=== PATIENT | female | born 1955 | race Caucasian/White ===

== ENCOUNTER → 2021-06-06 14:33 | Outpatient (CLI) | payer MEDICARE, BC, SELFPAY ==
--- NOTE | 2021-06-06 | DI.RAD.S_ITS ---
PROCEDURE: XR SACRUM COCCYX MIN 2V INDICATIONS: low back pain w/ sciatica TECHNIQUE: 3 views of the sacrum and coccyx acquired. COMPARISON: None. FINDINGS: Bones: No fractures or dislocations. No suspicious bony lesions. Soft tissues: Visualized bowel gas pattern is normal. No suspicious soft tissue densities. IMPRESSION: No fracture. No acute osseous lesion. If symptoms and/or clinical suspicion for pathology persists, further assessment with repeat radiographs (7-10 days) or advanced imaging (e.g. CT, MRI or bone scan) should be considered. Dictated by: Therese Mane MD, PhD on 06/06/2021 at 17:28 Approved by: Therese Mane MD, PhD on 06/06/2021 at 17:29
== END ==
PROVIDERS: Referring Provider Student in an Organized Health Care Education/Training Program; Visit Provider Student in an Organized Health Care Education/Training Program
DX: M54.50 Low back pain, unspecified (principal); M53.3 Sacrococcygeal disorders, not elsewhere classified
CPT/HCPCS: 72220

== ENCOUNTER 2021-06-08 12:37 | Emergency (ER) | payer MEDICARE, BC, SELFPAY ==
[2021-06-08 12:50] VITALS: BP 136/62; PULSE 84; RESP 15; TEMP 37; O2SAT 97; BMI 23.6
--- NOTE | 2021-06-08 12:52 | ED.BACK ---
HPI - Back Pain/Injury <ALFONSO Novak - Last Filed: 06/08/21 17:44> General Chief Complaint: Back Pain/Injury Stated Complaint: Back injury 05/30- pain worsening Time Seen by Provider: 06/08/21 12:47 History of Present Illness HPI Narrative: This is a 65-year-old female without significant medical history presents to the emergency department complaining of ongoing right-sided back pain from her fall on 05/30/2021. Patient states that she was approximately 5 ft up on a ladder when she fell off, has had right hip pain or right lower lateral back pain ever since. She states that she landed on her coccyx, does not have coccygeal pain but has tenderness over her lumbar area and tenderness over her right posterior hip. She denies any open wound, she denies hitting her head, she had x-rays initially at the [facility] on 06/02/21 without evidence of fracture, she had sacrum and coccyx x-ray on 06/06/21 here in the emergency department without evidence of acute osseous abnormality. Patient states that she has not had lumbar spine x-rays. She denies any weakness in her lower extremities, any sensation changes, any neuropathy, incontinence, urinary retention or any other changes. Related Data Previous Rx's Medication Instructions Recorded diclofenac sodium 1 % topical gel 4 g TOPICAL QID PRN #100 g 06/08/21 (Voltaren Arthritis Pain) ketorolac 10 mg tablet 10 mg PO Q8H PRN #14 tab 06/08/21 lidocaine 4 % topical patch (Lido 1 patch TOPICAL BID PRN #15 ea 06/08/21 ) methocarbamol 500 mg tablet 500 mg PO TID PRN #20 tab 06/08/21 omeprazole magnesium 20 mg 20 mg PO DAILY #14 tab 06/08/21 tablet,delayed release oxycodone-acetaminophen 5 mg-325 1 tab PO Q8H PRN #14 tab 06/08/21 mg tablet (Percocet) Allergies Allergy/AdvReac Type Severity Reaction Status Date / Time codeine Allergy Verified 06/08/21 12:56 Review of Systems <ALFONSO Novak - Last Filed: 06/08/21 17:44> Review of Systems Narrative: General: denies fever, chills, malaise, sweats, fatigue Head/Neck: denies headache, neck pain, dizziness Eyes: denies visual changes, eye pain Cardio: denies chest pain, palpitations, edema Respiratory: denies dyspnea, cough, orthopnea GI: denies abdominal pain, nausea, vomiting, or diarrhea : denies dysuria, hematuria, urinary retention, frequency or incontinence MSK: endorses back pain with right posterior hip pain muscle weakness Skin: denies rash, itching, skin lesions or other Neuro: denies numbness, tingling Patient History <ALFONSO Novak - Last Filed: 06/08/21 17:44> Social History Smoking Status: Current every day smoker Exam <ALFONSO Novak - Last Filed: 06/08/21 17:44> Narrative Exam Narrative: Independently reviewed vitals signs and nursing notes. General: Awake, alert, nontoxic, no cardiorespiratory distress Head/Neck: Atraumatic, neck full range of motion Eyes: EOMI, conjunctiva normal Nose: nares patent, no rhinorrhea Mouth/Throat: moist mucus membranes,no oral lesions Cardio: Regular rate and rhythm, no peripheral edema Respiratory: respirations unlabored without wheezing, stridor, or rales. No retractions. GI: Abdomen soft, nontender to palpation MSK: Moves all extremities, neurovascularly intact, tenderness over L1 L2 vertebrae, likely radiculopathy to right hip, tenderness of the musculature surrounding the right lumbar spine, no weakness her lower extremities, symptoms are exacerbated with left leg raise, no alteration in gait Skin: Normal capillary refill, no rash Neuro: Normal speech and cognition, normal gait, cranial nerves 2-12 are grossly intact, no neuro deficit on exam Initial Vital Signs Initial Vital Signs: Vital Signs Temperature 98.6 F 06/08/21 12:50 Pulse Rate 84 06/08/21 12:50 Respiratory Rate 15 06/08/21 12:50 Blood Pressure 136/62 06/08/21 12:50 Pulse Oximetry 97 06/08/21 12:50 <Eve Case DO - Last Filed: 06/09/21 06:48> Initial Vital Signs Initial Vital Signs: Vital Signs Temperature 98.6 F 06/08/21 12:50 Pulse Rate 84 06/08/21 12:50 Respiratory Rate 15 06/08/21 12:50 Blood Pressure 136/62 04/06/22 12:50 Pulse Oximetry 97 06/08/21 12:50 Course <ALFONSO Novak - Last Filed: 06/08/21 17:44> Orders Ordered: Discontinued Medications Ketorolac Tromethamine (Ketorolac 30 Mg/Ml Vial) 15 mg IM NOW ONE Stop: 06/08/21 13:05 Last Admin: 06/08/21 13:41 Dose: 15 mg Documented by: MICHELLE Lidocaine (Lidocaine Patch 1 Each Adh..Patch) 1 each TOP NOW ONE Stop: 06/08/21 13:05 Last Admin: 06/08/21 13:41 Dose: 1 each Documented by: MICHELLE Methocarbamol (Methocarbamol 500 Mg Tablet) 500 mg PO NOW ONE Stop: 06/08/21 13:05 Last Admin: 06/08/21 13:42 Dose: 500 mg Documented by: MICHELLE Oxycodone/Acetaminophen (Oxycodone/Acetaminophen 5/325 Tablet) 1 tab PO NOW ONE Stop: 06/08/21 13:05 Last Admin: 06/08/21 13:41 Dose: 1 tab Documented by: MICHELLE Vital Signs Vital signs: Vital Signs - 8 hr 06/08/21 12:50 06/08/21 14:47 Temperature 98.6 F Pulse Rate 84 77 Respiratory Rate 15 16 Blood Pressure 136/62 134/74 Pulse Oximetry 97 97 <Eve Case DO - Last Filed: 06/09/21 06:48> Orders Ordered: Discontinued Medications Ketorolac Tromethamine (Ketorolac 30 Mg/Ml Vial) 15 mg IM NOW ONE Stop: 06/08/21 13:05 Last Admin: 06/08/21 13:41 Dose: 15 mg Documented by: MICHELLE Lidocaine (Lidocaine Patch 1 Each Adh..Patch) 1 each TOP NOW ONE Stop: 06/08/21 13:05 Last Admin: 06/08/21 13:41 Dose: 1 each Documented by: MICHELLE Methocarbamol (Methocarbamol 500 Mg Tablet) 500 mg PO NOW ONE Stop: 06/08/21 13:05 Last Admin: 06/08/21 13:42 Dose: 500 mg Documented by: MICHELLE Oxycodone/Acetaminophen (Oxycodone/Acetaminophen 5/325 Tablet) 1 tab PO NOW ONE Stop: 06/08/21 13:05 Last Admin: 06/08/21 13:41 Dose: 1 tab Documented by: MICHELLE Vital Signs Vital signs: Vital Signs - 8 hr 06/08/21 12:50 06/08/21 14:47 Temperature 98.6 F Pulse Rate 84 77 Respiratory Rate 15 16 Blood Pressure 136/62 134/74 Pulse Oximetry 97 97 [facility] - Back Pain/Injury <Vicky Meraz, [facility] - Last Filed: 06/08/21 17:44> Imaging Data lumbar xray: Radiologist's Impression: PROCEDURE:? XR LUMBAR SPINE 2-3V ? INDICATIONS:? fall from ladder 05/30. lumbar tenderness, radiated rt hip pn ? TECHNIQUE:? 3 views of the lumbar spine were acquired.? ? COMPARISON:? None. ? FINDINGS:? ? Bones:? 5 [id number] vertebrae are present.? There is normal bony alignment.? Loss of height noted in the L1 vertebral body compatible with compression fracture of indeterminate age.? L1 compression fracture results in approximately 20% loss of normal vertebral body height.? No retropulsed fragments are kyphosis associated with the L1 compression fracture.? No suspicious bony lesions.? Severe L5-S1 degenerative disc disease.? Mild L1-L2, L2-L3, L3-L4 and L4-L5 degenerative disc disease.? Moderate L4-L5 and L5-S1 facet arthropathy.? ? Soft tissues:? Overlying bowel gas pattern is normal.? No suspicious soft tissue calcifications.? ? ? IMPRESSION:? L1 compression fracture of indeterminate age. ? ? Dictated by: Therese Mane MD, PhD on 06/08/2021 at 13:39 ? ? Approved by: Therese Mane MD, PhD on 06/08/2021 at 13:40 ? [facility] Narrative Medical decision making narrative: This is an otherwise healthy 65-year-old male presents to the emergency department for ongoing low back pain with right hip pain since her fall on 05/30/2021. She has been seen with x-rays 2 x 1st at the [facility], 2nd here in the emergency department with x-rays of her sacrum and coccyx. On exam, patient had tenderness over her L1-L2 vertebrae. X-ray of her lumbar spine shows a L1 compression fracture with if vertebral body height reduction of 20%. This is likely causing referred pain to her right hip. Patient was given a lidocaine patch in the emergency department, Toradol injection, methocarbamol, and a Percocet. She states that this helped her pain and she is more comfortable. Patient was given a referral to Orthopedics to follow up accordingly, she came in with a back brace, she was told that it can be used in the acute period of pain but not to be worn long-term for core musculature atrophy. Patient states understanding, she will follow-up with [facility], a referral to Dr. Mart was placed. Pt's partner has seen him before for his spinal surgery and she would like to see him as well. Patient did not have any weakness, does not have any sciatica at this time or radiculopathy beyond her right hip. She has not had any incontinence. Multiple etiologies of back pain considered including; Epidural abscess, cauda equina, mass occupying lesion, lumbar fracture, intra-abdominal pathology chronic neuropathic pain and other considered. Patient is appropriate and amenable to discharge home. Vital signs are stable on repeat examination is unremarkable. Patient has been informed of results. Patient has been given strict return to ER precautions for any new or worsening symptoms. Patient understands to follow up closely with outpatient providers as instructed. Patient understands plan and agrees to discharge home. All questions and concerns answered at this time. Discharge Plan Departure Patient Disposition: Home Clinical Impression: Compression fracture of lumbar vertebra Qualifiers: Encounter type: subsequent encounter Lumbar vertebra fracture level: L1 Fracture healing: with routine healing Qualified Code(s): S32.010D - Wedge compression fracture of first lumbar vertebra, subsequent encounter for fracture with routine healing Instructions: Vertebral Compression Fracture, DI for Sciatica, DI for Back Spasm Activity Restrictions/Additional Instructions: *You have been diagnosed with a L1 compression fracture resulting in approximately 20% loss of normal vertebral body height. Your x-ray also shows severe L5-S1 degenerative disc disease, mild L1-L2, L2-L3, L3-L4, and L4-L5 degenerative disk disease. There is moderate L4-L5 and L5-S1 facet arthropathy. Please follow-up with Dr. Mart, I have placed an internal referral for him. Please call the office and see when you can get an appointment. Please follow-up with Dr. Monsalve for advanced imaging and or physical therapy. Please return to the emergency department if you develop any weakness, incontinence, sensation changes in your extremities, difficulty walking, or other concerns. Thank you for trusting us with your care. Please schedule an appt with Dr. Fela Monsalve For follow-up from your emergency department visit, and request physical therapy referral, [id number] [address] *What to do: *Please continue to take your regular medications as directed. [ x] New medication prescriptions sent to your pharmacy: [[facility] ] [ ] New medication written as a paper prescription [ ] No new medications given *Please follow up with your primary care provider in 2-3 days, call for an appointment. Let them know you were seen in the Emergency Department and that we asked that you be seen for follow-up. We will electronically transmit a record of today's note if your PCP is in our system *If you do not have a primary care provider please contact [phone] to establish care with one of the [facility] primary care providers. *Return to Emergency Department if you should have any new, worsening or concerning symptoms, such as [fever greater than 101F, chills, worsening pain, persistent vomiting or other bothersome symptoms] Prescriptions: New oxycodone-acetaminophen [Percocet] 5-325 mg tablet 1 tab PO Q8H PRN (Reason: pain) Qty: 14 0RF methocarbamol 500 mg tablet 500 mg PO TID PRN (Reason: muscle spasm) Qty: 20 0RF lidocaine [Lido Ney] 4 % adhesive patch,medicated 1 patch topical BID PRN (Reason: pain) Qty: 15 0RF diclofenac sodium [Voltaren Arthritis Pain] 1 % gel 4 g topical QID PRN (Reason: back pain) Qty: 100 0RF Rx Instructions: apply to single knee, ankle, foot; for foot includes sole/toes/top of foot ketorolac 10 mg tablet 10 mg PO Q8H PRN (Reason: pain) Qty: 14 0RF omeprazole magnesium 20 mg tablet,delayed release (DR/EC) 20 mg PO DAILY Qty: 14 0RF Referrals: [facility] [Provider Group] Stefano Mart MD [Physician] - 3-5 days <Eve Case DO - Last Filed: 06/09/21 06:48> Cosign ED Attending Cosignature Attestation: I was immediately available in the department for consultation. Documentation has been reviewed. I agree with assessment and plan.
--- NOTE | 2021-06-08 13:03 | DI.RAD.S_ITS ---
PROCEDURE: XR LUMBAR SPINE 2-3V INDICATIONS: fall from ladder 05/30. lumbar tenderness, radiated rt hip pn TECHNIQUE: 3 views of the lumbar spine were acquired. COMPARISON: None. FINDINGS: Bones: 5 [id number] vertebrae are present. There is normal bony alignment. Loss of height noted in the L1 vertebral body compatible with compression fracture of indeterminate age. L1 compression fracture results in approximately 20% loss of normal vertebral body height. No retropulsed fragments are kyphosis associated with the L1 compression fracture. No suspicious bony lesions. Severe L5-S1 degenerative disc disease. Mild L1-L2, L2-L3, L3-L4 and L4-L5 degenerative disc disease. Moderate L4-L5 and L5-S1 facet arthropathy. Soft tissues: Overlying bowel gas pattern is normal. No suspicious soft tissue calcifications. IMPRESSION: L1 compression fracture of indeterminate age. Dictated by: Therese Mane MD, PhD on 06/08/2021 at 13:39 Approved by: Therese Mane MD, PhD on 06/08/2021 at 13:40
[2021-06-08] MEDS: LIDOCAINE PATCH 1 EACH ADH..PATCH TOP (13:41)
[2021-06-08] MEDS: KETOROLAC 30 MG/ML VIAL 15 MG IM (13:41)
[2021-06-08] MEDS: OXYCODONE/ACETAMINOPHEN 5/325 TABLET 1 TAB PO (13:41)
[2021-06-08] MEDS: methocarbamoL 500 MG TABLET PO (13:42)
--- NOTE | 2021-06-08 13:49 | PC.NURSE ---
Pt states she fell off a 5 ft ladder on 05/30. was seen at her Dr's office and rec'd XR's which were negative. did not hit her head, no LOC, no thinners, c/o increased R sided lumbar back pain. Denies bladder/bowel dysfunction. Repeat XR's completed at todays visit. Medicated per MAY. Resting in bed at this time. NAD
[2021-06-08 14:47] VITALS: BP 134/74; PULSE 77; RESP 16; O2SAT 97
== END 2021-06-08 14:47 | disposition home or self-care (01) ==
PROVIDERS: Emergency Provider Nurse Practitioner Critical Care Medicine
DX: S32.010A Wedge compression fracture of first lumbar vertebra, initial encounter for closed fracture (principal); W11.XXXA Fall on and from ladder, initial encounter
CPT/HCPCS: 72100; 96372; 99283; 99284; J1885

== ENCOUNTER 2024-05-16 08:49 | Emergency (ER) | payer MEDICARE, BC, SELFPAY ==
[2024-05-16] VITALS (10 sets, daily range): BP systolic 124–138; BP diastolic 58–79; PULSE 60–74; RESP 14; TEMP 37.1; O2SAT 93–95; BMI 23.6
--- NOTE | 2024-05-16 08:53 | DI.RAD.S_ITS ---
PROCEDURE: XR ANKLE LT MIN 3V INDICATIONS: ankle deformity TECHNIQUE: 3 views of the ankle were acquired. COMPARISON: None. FINDINGS: Bones: There are probable very subtle fractures of the proximal shafts of the 3rd, 4th, and 5th metatarsals. No ankle fractures are identified. Ankle mortise is normally aligned. No suspicious bony lesions. Soft tissues: No tibiotalar joint effusion. Achilles tendon appears normal. IMPRESSION: Probable nondisplaced very subtle fractures of the proximal shafts of the 3rd, 4th, and 5th metatarsals. No fractures at the ankle. Comment: Recommend foot films. Dictated by: Ralph Hernandez M.D. on 05/16/2024 at 9:14 Approved by: Ralph Hernandez M.D. on 05/16/2024 at 9:17
--- NOTE | 2024-05-16 10:21 | DI.RAD.S_ITS ---
PROCEDURE: XR FOOT LT MIN 3V INDICATIONS: foot fx on ankle x ray TECHNIQUE: 3 views of the foot were acquired. COMPARISON: [facility], CR, XR ANKLE LT MIN 3V, 05/16/2024, 8:55. FINDINGS/IMPRESSION: Minimally displaced, extra-articular fractures of the 4th and 5th metacarpal proximal shafts. Dictated by: Donell Esteban M.D. on 05/16/2024 at 10:43 Approved by: Donell Esteban M.D. on 05/16/2024 at 10:45
[2024-05-16] MEDS: IBUPROFEN 400 MG TABLET 800 MG PO (10:33)
--- NOTE | 2024-05-16 11:06 | ED_ITS ---
HPI - Extremity Injury (Lower) General Chief Complaint: Extremity Injury, Lower Stated Complaint: Fall, L ankle deformity, R knee pain Time Seen by Provider: 05/16/24 10:21 Source: patient Mode of arrival: EMS History of Present Illness HPI Narrative: Patient is a 68-year-old female history of diabetes presenting to day after ground level fall presenting today with left foot and ankle pain. Denies any head injury neck pain no hip pain or loss of consciousness. Took Tylenol prior to arrival Related Data Previous Rx's Medication Instructions Recorded diclofenac sodium 1 % topical gel 4 g topical QID PRN back pain #100 06/08/21 (Voltaren Arthritis Pain) grams ketorolac 10 mg tablet 10 mg PO Q8H PRN pain #14 tabs 06/08/21 lidocaine 4 % topical patch (Lido 1 patch topical BID PRN pain #15 ea 06/08/21 Ney) methocarbamol 500 mg tablet 500 mg PO TID PRN muscle spasm #20 06/08/21 tabs omeprazole magnesium 20 mg 20 mg PO DAILY #14 tabs 06/08/21 tablet,delayed release oxycodone-acetaminophen 5 mg-325 1 tab PO Q8H PRN pain #14 tabs 06/08/21 mg tablet (Percocet) tramadol 50 mg tablet 50 mg PO Q6H PRN pain #14 tabs 05/16/24 Allergies Allergy/AdvReac Type Severity Reaction Status Date / Time codeine Allergy Verified 05/16/24 08:50 Patient History Social History Smoking Status: Current every day smoker Smoking Status: Current every day smoker alcohol intake frequency: holidays/special occasions only Exam Initial Vital Signs Initial Vital Signs: Vital Signs Temperature 98.8 F 05/16/24 08:50 Pulse Rate 69 05/16/24 08:50 Respiratory Rate 14 05/16/24 08:50 Blood Pressure 138/65 05/16/24 08:50 Pulse Oximetry 95 05/16/24 08:50 Oxygen Delivery Method Room Air 05/16/24 08:50 GENERAL: Well-appearing, well-nourished and in no acute distress. CARDIOVASCULAR: peripheral pulses in tact, cap refill <2 sec RESPIRATORY: No respiratory distress, speaks in full sentences without difficulty [ABDOMEN: Soft, nontender, no guarding or rebound] EXTREMITIES: Normal range of motion, no clubbing or edema. Neurovascularly intact Left lower extremity knee nontender mild swelling mid foot some contusion distal pedal pulse intact pain to light touch NEUROLOGICAL: Cranial nerves II through XII grossly intact. Normal gait and speech. SKIN: Warm, dry, no petechiae, no rashes or lesions. Course Orders Ordered: ED Orders 05/16/24 08:53 XR ankle LT min 3V Stat 05/16/24 10:21 XR foot LT min 3V Stat Discontinued Medications Ibuprofen (Ibuprofen 400 Mg Tablet) 800 mg PO NOW ONE Stop: 05/16/24 10:22 Last Admin: 05/16/24 10:33 Dose: 800 mg Documented By: DELROY Vital Signs Vital signs: Vital Signs - 8 hr 05/16/24 08:50 05/16/24 08:52 05/16/24 08:52 Temperature 98.8 F Pulse Rate 69 69 Respiratory Rate 14 Blood Pressure 138/65 138/63 Pulse Oximetry 95 94 Oxygen Delivery Method Room Air 05/16/24 09:00 05/16/24 09:00 05/16/24 09:30 Temperature Pulse Rate 60 74 Respiratory Rate Blood Pressure 133/61 Pulse Oximetry 95 93 Oxygen Delivery Method 05/16/24 09:31 05/16/24 09:31 05/16/24 10:00 Temperature Pulse Rate 68 Respiratory Rate Blood Pressure 130/60 127/58 L Pulse Oximetry 93 Oxygen Delivery Method 05/16/24 10:00 05/16/24 10:30 05/16/24 10:31 Temperature Pulse Rate 66 66 Respiratory Rate Blood Pressure 133/61 Pulse Oximetry 94 93 Oxygen Delivery Method 05/16/24 10:31 05/16/24 11:00 05/16/24 11:01 Temperature Pulse Rate 72 69 Respiratory Rate Blood Pressure 124/79 Pulse Oximetry 94 94 Oxygen Delivery Method 05/16/24 11:01 Temperature Pulse Rate 64 Respiratory Rate Blood Pressure Pulse Oximetry 95 Oxygen Delivery Method Room Air MDM - Extremity Injury (Lower) Imaging Data Extremity x-ray #1: Radiologist's Impression: PROCEDURE: XR ANKLE LT MIN 3V INDICATIONS: ankle deformity TECHNIQUE: 3 views of the ankle were acquired. COMPARISON: None. FINDINGS: Bones: There are probable very subtle fractures of the proximal shafts of the 3rd, 4th, and 5th metatarsals. No ankle fractures are identified. Ankle mortise is normally aligned. No suspicious bony lesions. Soft tissues: No tibiotalar joint effusion. Achilles tendon appears normal. IMPRESSION: Probable nondisplaced very subtle fractures of the proximal shafts of the 3rd, 4th, and 5th metatarsals. No fractures at the ankle. Comment: Recommend foot films. Dictated by: Ralph Hernandez M.D. on 05/16/2024 at 9:14 Extremity x-ray #2: Radiologist's Impression: PROCEDURE: XR FOOT LT MIN 3V INDICATIONS: foot fx on ankle x ray TECHNIQUE: 3 views of the foot were acquired. COMPARISON: [facility], CR, XR ANKLE LT MIN 3V, 05/16/2024, 8:55. FINDINGS/IMPRESSION: Minimally displaced, extra-articular fractures of the 4th and 5th metacarpal proximal shafts. Dictated by: Donell Esteban M.D. on 05/16/2024 at 10:43 MDM Narrative Medical decision making narrative: Patient 68-year-old female presenting today with left lower extremity injury. X-rays have been reviewed no ankle fracture but subtle metacarpal proximal shaft fractures noted on 4th and 5th. No evidence of a Lisfranc fracture or Garcia fracture Patient is put in orthopedic she was given crutches instructed to follow-up Discharge Plan Departure Patient Disposition: Home Clinical Impression: Foot fracture Instructions: Foot Fracture Activity Restrictions/Additional Instructions: *You have been diagnosed with foot fracture metatarsals 4 and 5 *What to do: Were orthopedic shoe at all times no weight-bearing use crutches. Elevate and ice 20-30 minutes at a time *Continue to take medications as directed Tramadol 50 mg every 6 hours if needed for severe pain Tylenol 1000 mg every 6 hours if needed for [id number] pain *Follow up with your primary care provider in 2-3 days or call [phone] [facility] *Return to ER if you should have increasing pain swelling numbness tingling [or] any new, worsening or concerning symptoms Prescriptions: New tramadol 50 mg tablet 50 mg PO Q6H PRN (Reason: pain) Qty: 14 0RF No Action oxycodone-acetaminophen [Percocet] 5-325 mg tablet 1 tab PO Q8H PRN (Reason: pain) Qty: 14 0RF methocarbamol 500 mg tablet 500 mg PO TID PRN (Reason: muscle spasm) Qty: 20 0RF lidocaine [Lido Ney] 4 % adhesive patch,medicated 1 patch topical BID PRN (Reason: pain) Qty: 15 0RF diclofenac sodium [Voltaren Arthritis Pain] 1 % gel 4 g topical QID PRN (Reason: back pain) Qty: 100 0RF Rx Instructions: apply to single knee, ankle, foot; for foot includes sole/toes/top of foot ketorolac 10 mg tablet 10 mg PO Q8H PRN (Reason: pain) Qty: 14 0RF omeprazole magnesium 20 mg tablet,delayed release (DR/EC) 20 mg PO DAILY Qty: 14 0RF Referrals: [facility] [Provider Group] Stand Alone Forms: Patient Portal/API/Survey
== END 2024-05-16 11:41 | disposition home or self-care (01) ==
PROVIDERS: Emergency Provider Emergency Medicine
DX: S92.335A Nondisplaced fracture of third metatarsal bone, left foot, initial encounter for closed fracture (principal); S92.345A Nondisplaced fracture of fourth metatarsal bone, left foot, initial encounter for closed fracture; S92.355A Nondisplaced fracture of fifth metatarsal bone, left foot, initial encounter for closed fracture; W18.30XA Fall on same level, unspecified, initial encounter; F17.210 Nicotine dependence, cigarettes, uncomplicated
CPT/HCPCS: 73610; 73630; 99283